=== PATIENT | female | born 1970 | race Caucasian/White ===

== ENCOUNTER 2019-01-29 12:00 | Emergency (ER) | payer OTHER ==
[~2019-01-29] VITALS: Ht 180.3 cm; Wt 133.4 kg
[~2019-01-29 12:00] MED LIST: COREG3.125 MG PO; NORVASC2.5 MG PO; PROAIR HFA8.5 GM INH
[2019-01-29] MEDS ORDERED: HYDROCHLOROTH12.5 M1 PO (12:29)
[2019-01-29] MEDS ORDERED: CARVEDILOL3.125 MG PO (12:29)
[2019-01-29] MEDS ORDERED: CYMBALTA20 MG PO (12:30)
[2019-01-29 13:45] LABS: ABSOLUTE EOSINOPHILS 0.2 thou/uL (0.0-0.7); ABSOLUTE LYMPHOCYTES 1.2 thou/uL (0.8-5.3); ABSOLUTE MONOCYTES 0.5 thou/uL (0.0-1.2); ABSOLUTE NEUTROPHILS 4.3 thou/uL (1.6-8.1); BASOPHILS 0.8 %; HEMATOCRIT 43.8 % (37.0-47.0); HEMOGLOBIN 14.6 gm/dL (12.0-15.0); LYMPHOCYTES 19.7 %; MCH 28.8 pg (26.0-34.0); MCHC 33.4 g/dL (28.0-37.0); MCV 86.4 fL (80.0-100.0); MONOCYTES 7.9 %; MPV 8.8 fl. (7.2-11.1); NUCLEATED RBCS 0 /100WBC; PLATELET COUNT* 193 thou/uL (150-400); POLYS 68.6 %; RBC 5.07 mil/uL (4.20-5.00); RDW-CV 13.4 % (10.5-14.5); WBC 6.2 thou/uL (4.0-11.0)
[2019-01-29 13:48] LABS: ANION GAP 6 mmol/L (7-16); BUN 19 mg/dL (7-18); CALCIUM 8.6 mg/dL (8.5-10.1); CHLORIDE 105 mmol/L (98-107); CO2 32 mmol/L (21-32); CREATININE 0.7 mg/dL (0.6-1.3); GLUCOSE 90 mg/dL (70-99); POTASSIUM 3.9 mmol/L (3.5-5.1); SODIUM 143 mmol/L (136-145)
[2019-01-29 13:58] LABS: ALBUMIN 2.9 g/dL (3.4-5.0); ALKALINE PHOSPHATASE 95 U/L (46-116); SGOT 20 U/L (15-37); SGPT 22 U/L (30-65); TOTAL BILIRUBIN 0.2 mg/dL (<0.1-1.0); TOTAL PROTEIN 6.7 g/dL (6.4-8.2); TROPONIN-I LEVEL <0.06 ng/mL (<0.06)
[2019-01-29 14:04] LABS: INFLUENZA A ANTIGEN None Detected (None Detect); INFLUENZA B ANTIGEN None Detected (None Detect)
[2019-01-29] MEDS ORDERED: AMOXICILLIN 50500 M1 PO (14:34)
[2019-01-29] MEDS ORDERED: PHENERGAN 25 MG25 M1 PO (14:35)
[2019-01-29 15:13] VITALS: BP 133/77
--- NOTE | 2019-01-30 10:20 | EKG ---
[place] [address] ELECTROCARDIOGRAM REPORT Name: ALIZA PEREYRA Judi Room: [facility]#: [id number] Admission: 01/29/19 Attend Phys: Discharge: 01/29/19 Date of : 72 Report #: [id number] THIS REPORT FOR: //name// [place] ED Test Date: 2019-01-29 Test Time: 14:04:04 Pat Name: ALIZA PEREYRA Department: Room: Gender: F Adult Services Librarian: [facility] : 1970 Requested By: Alondra Garcia Order Number: [id number] MD: Johan Rice Measurements Intervals [place] Rate: 65 P: 69 [place]: 189 QRS: 4 QRSD: 108 T: 33 QT: 422 QTc: 439 Interpretive Statements Sinus rhythm Probable left atrial enlargement Compared to ECG 04/21/2016 09:05:17 No significant changes Electronically Signed On 01-30-2019 10:20:08 CDT by Johan Rice [email or web address] <ELECTRONICALLY SIGNED> By: Johan Rice MD, [facility] 01/30/19 1020 140 03 Johan Rice MD, [facility] /EPI
== END 2019-01-29 15:16 | disposition home or self-care (01) ==
LOC: M.ERS 12:00
PROVIDERS: Nurse Practitioner Family
DX: R59.1 Generalized enlarged lymph nodes (principal); R42 Dizziness and giddiness; I10 Essential (primary) hypertension; Z88.6 Allergy status to analgesic agent; Z88.1 Allergy status to other antibiotic agents; Z88.5 Allergy status to narcotic agent; Z88.8 Allergy status to other drugs, medicaments and biological substances

== ENCOUNTER → 2019-10-22 | Outpatient (CLI) | payer MEDICARE ==
[~2019-10-22] MED LIST changes: +AMOXICILLIN 50500 M1 PO; +CARVEDILOL3.125 MG PO; +CYMBALTA20 MG PO; +HYDROCHLOROTH12.5 M1 PO; +PHENERGAN 25 MG25 M1 PO
[2019-10-22 08:53] LABS: ABSOLUTE EOSINOPHILS 0.2 thou/uL (0.0-0.7); ABSOLUTE LYMPHOCYTES 1.3 thou/uL (0.8-5.3); ABSOLUTE MONOCYTES 0.4 thou/uL (0.0-1.2); BASOPHILS 0.6 %; EOSINOPHILS 2.7 %; HEMATOCRIT 50.4 % (37.0-47.0); HEMOGLOBIN 17.2 gm/dL (12.0-15.0); LYMPHOCYTES 22.8 %; MCH 29.6 pg (26.0-34.0); MCHC 34.1 g/dL (28.0-37.0); MCV 86.8 fL (80.0-100.0); MONOCYTES 6.6 %; MPV 7.8 fl. (7.2-11.1); NUCLEATED RBCS 0 /100WBC; PLATELET COUNT* 210 thou/uL (150-400); POLYS 67.3 %; RDW-CV 13.8 % (10.5-14.5); WBC 5.9 thou/uL (4.0-11.0)
[2019-10-22 09:18] LABS: ALBUMIN 3.6 g/dL (3.4-5.0); CALCIUM 8.8 mg/dL (8.5-10.1); CREATININE 0.7 mg/dL (0.6-1.3); POTASSIUM 4.2 mmol/L (3.5-5.1); TOTAL BILIRUBIN 0.4 mg/dL (<0.1-1.0); TOTAL PROTEIN 7.7 g/dL (6.4-8.2)
--- NOTE | 2019-10-22 09:19 | 2DMMODE ---
[place] [address] 2 D/M-MODE ECHOCARDIOGRAM Name: AILZA PEREYRA Room: [facility]#: [id number] Admission: 10/22/19 Attend Phys: Kingsley Stroud, Discharge: Date of : 72 Date of Service: 10/22/19 0918 Report #: [id number] THIS REPORT FOR: cc: BLAINE MALDONADO DO Physician not on staff Dillon Lucero MD [facility] ~ APPROVED REPORT Study performed: 10/22/2019 07:53:23 EXAM: Comprehensive 2D, Doppler, and color-flow Echocardiogram Patient Location: Out-Patient BSA: 2.51 HR: 77 bpm BP: 136/80 mmHg Other Information Study Quality: Good Indications Hypertension/HDD 2D Dimensions IVSd: 10.20 (7-11mm) LVOT Diam: 20.08 (18-24mm) LVDd: 44.68 mm PWd: 10.20 (7-11mm) Ascending Ao: 34.94 (22-36mm) LVDs: 31.92 (25-40mm) Aortic Root: 24.35 mm Volumes Left Atrial Volume (Systole) LA ESV Index: 12.70 mL/m2 Aortic Valve AoV Peak David.: 0.95 m/s AO Peak Gr.: 3.64 mmHg LVOT Max P.03 mmHg AO Mean Gr.: 2.20 mmHg LVOT Mean P.98 mmHg LVOT Max V: 1.00 m/s AO V2 VTI: 20.81 cm LVOT Mean V: 0.65 m/s TUSHAR (VTI): 3.32 cm2 LVOT V1 VTI: 21.84 cm Mitral Valve E/A Ratio: 0.92 [place] [address] 2 D/M-MODE ECHOCARDIOGRAM Name: ALIZA PEREYRA Room: [facility]#: [id number] Admission: 10/22/19 Attend Phys: Kingsley Stroud, Discharge: Date of : 72 Date of Service: 10/22/19 0918 Report #: [id number] MV Decel. Time: 244.49 ms MV E Max David.: 0.50 m/s MV PHT: 70.90 ms MVA (PHT): 3.10 cm2 TDI E/Lateral E': 3.33 E/Medial E': 4.55 Medial E' David.: 0.11 m/s Lateral E' David.: 0.15 m/s Pulmonary Valve PV Peak David.: 0.82 m/s PV Peak Gr.: 2.68 mmHg Left Ventricle The left ventricle is normal size. There is normal LV segmental wall motion. There is normal left ventricular wall thickness. Left ventricular systolic function is normal. The left ventricular ejection fraction is within the normal range. LVEF is 55-60%. The left ventricular diastolic function is normal. Right Ventricle The right ventricle is normal size. The right ventricular systolic function is normal. Atria The left atrium size is normal. The right atrium size is normal. Aortic Valve The aortic valve is normal in structure. No aortic regurgitation is present. There is no aortic valvular stenosis. Mitral Valve The mitral valve is normal in structure. There is trace mitral valve regurgitation noted. No evidence of mitral valve stenosis. Tricuspid Valve The tricuspid valve is normal in structure. There is trace tricuspid valve regurgitation noted. Pulmonic Valve The pulmonary valve is normal in structure. There is no pulmonic valvular regurgitation. Great Vessels The aortic root is normal in size. IVC [place] [address] 2 D/M-MODE ECHOCARDIOGRAM Name: ALIZA PEREYRA Room: [facility]#: [id number] Admission: 10/22/19 Attend Phys: Kingsley Stroud, Discharge: Date of : 72 Date of Service: 10/22/19 0918 Report #: [id number] collapses >50% with inspiration. Pericardium There is no pericardial effusion. <Conclusion> Left ventricular systolic function is normal. The left ventricular ejection fraction is within the normal range. <ELECTRONICALLY SIGNED> By: Dillon Lucero MD, FACC 10/22/19917 7 7 Dillon Lucero MD, FACC /INF
== END ==
LOC: M.CRD 07:45
PROVIDERS: Internal Medicine Cardiovascular Disease
DX: I10 Essential (primary) hypertension (principal); Z82.49 Family history of ischemic heart disease and other diseases of the circulatory system

== ENCOUNTER 2019-11-15 12:27 | Observation (INO) | payer MEDICARE ==
[~2019-11-15] VITALS: Ht 180.3 cm; Wt 142.4 kg
[~2019-11-15 12:27] MED LIST changes: +NORVASC 2.5 MG2.5 M1 PO; -NORVASC2.5 MG PO
[2019-11-15 12:40] VITALS: BP 151/98
[2019-11-15] MEDS ORDERED: TRIAMTERENE/HCT1 CA1 PO (12:45)
[2019-11-15 13:23] LABS: ABSOLUTE BASOPHILS 0.1 thou/uL (0.0-0.2); ABSOLUTE EOSINOPHILS 0.2 thou/uL (0.0-0.7); ABSOLUTE LYMPHOCYTES 1.4 thou/uL (0.8-5.3); ABSOLUTE MONOCYTES 0.6 thou/uL (0.0-1.2); ABSOLUTE NEUTROPHILS 5.5 thou/uL (1.6-8.1); BASOPHILS 0.8 %; EOSINOPHILS 2.3 %; HEMATOCRIT 43.3 % (37.0-47.0); HEMOGLOBIN 14.7 gm/dL (12.0-15.0); LYMPHOCYTES 18.2 %; MCH 29.1 pg (26.0-34.0); MCHC 33.9 g/dL (28.0-37.0); MCV 85.9 fL (80.0-100.0); MONOCYTES 7.4 %; MPV 7.9 fl. (7.2-11.1); NUCLEATED RBCS 0 /100WBC; PLATELET COUNT* 234 thou/uL (150-400); POLYS 71.3 %; RBC 5.05 mil/uL (4.20-5.00); RDW-CV 13.5 % (10.5-14.5); WBC 7.7 thou/uL (4.0-11.0)
[2019-11-15 13:32] LABS: CALCIUM 8.1 mg/dL (8.5-10.1); CREATININE 0.6 mg/dL (0.6-1.3); POTASSIUM 4.1 mmol/L (3.5-5.1)
[2019-11-15 13:43] LABS: ALBUMIN 2.9 g/dL (3.4-5.0); TOTAL BILIRUBIN 0.2 mg/dL (<0.1-1.0); TOTAL PROTEIN 6.7 g/dL (6.4-8.2)
--- NOTE | 2019-11-15 15:27 | EKG ---
[place] [address] ELECTROCARDIOGRAM REPORT Name: ALIZA PEREYRA Room: [facility]#: [id number] Admission: 11/15/19 Attend Phys: Discharge: Date of : 72 Date of Service: 11/15/19 1235 Report #: [id number] THIS REPORT FOR: //name// [facility] ED Test Date: 2019-11-15 Test Time: 12:35:11 Pat Name: ALIZA PEREYRA Department: Room: Gender: Business Reporter: KEISHA : 1970 Requested By: Alondra Garcia Order Number: [id number] MD: Dillon Lucero Measurements Intervals [place] Rate: 87 P: 64 [place]: 173 QRS: -14 QRSD: 111 T: 33 QT: 391 QTc: 471 Interpretive Statements Sinus rhythm Compared to ECG 01/29/2019 14:04:04 No significant changes Electronically Signed On 11-15-2019 15:26:15 CDT by Dillon Lucero [email or web address] <ELECTRONICALLY SIGNED> By: Dillon Lucero MD, [facility] 11/15/19 1526 1235 1235 Dillon Lucero MD, [facility] /EPI
--- NOTE | 2019-11-15 15:27 | EKG ---
[place] [address] ELECTROCARDIOGRAM REPORT Name: ALIZA PEREYRA Room: [facility]#: [id number] Admission: 11/15/19 Attend Phys: Discharge: Date of : 72 Date of Service: 11/15/19 1349 Report #: [id number] THIS REPORT FOR: //name// [facility] ED Test Date: 2019-11-15 Test Time: 13:49:01 Pat Name: ALIZA PEREYRA Department: Room: Gender: Plant Tech: KEISHA : 1970 Requested By: Alondra Garcia Order Number: [id number] MD: Dillon Lucero Measurements Intervals [place] Rate: 72 P: 63 [place]: 181 QRS: 4 QRSD: 104 T: 30 QT: 391 QTc: 428 Interpretive Statements Sinus rhythm Compared to ECG 01/29/2019 14:04:04 No significant changes Electronically Signed On 11-15-2019 15:26:23 CDT by Dillon Lucero [email or web address] <ELECTRONICALLY SIGNED> By: Dillon Lucero MD, [facility] 11/15/19 1526 1349 Dillon Lucero MD, [facility]AC /EPI
[2019-11-15 16:04] LABS: URINE BILIRUBIN NEGATIVE (Negative); URINE BLOOD NEGATIVE (Negative); URINE CLARITY CLEAR; URINE COLOR YELLOW; URINE GLUCOSE-RANDOM NEGATIVE (Negative); URINE KETONES NEGATIVE (Negative); URINE LEUKOCYTES-REFLEX NEGATIVE (Negative); URINE NITRITE-REFLEX NEGATIVE (Negative); URINE PROTEIN NEGATIVE (Negative); URINE SPECIFIC GRAVITY <= 1.005 (1.005-1.030); URINE UROBILINOGEN 0.2 E.U./dl (0.2-1.0)
[2019-11-15 16:15] LABS: AMP/METHAMP Negative (Negative); BARBITURATES Negative (Negative); BENZODIAZEPINES Negative (Negative); COCAINE Negative (Negative); METHADONE Negative (Negative); OPIATES Negative (Negative); PCP Negative (Negative); THC Negative (Negative)
[2019-11-15 16:45] VITALS: BP 151/96
[2019-11-15 16:50] VITALS: BP 139/89
--- NOTE | 2019-11-15 18:08 | NUR ---
PATIENT ARRIVED FROM ER THIS EVENING. PATIENT SETTLED TO ROOM. HISTORY, ASSESSMENT AND VITALS COMPLETED AND DOCUMENTED. PATIENT SEEN BY DR ALEX. PATIENT HAS CONTINUED COMPLAINTS OF CHEST PAIN, DR ALEX AWARE. PATIENT HAS GOOD APPETITE. PATIENT AWAER SHE WILL BE NPO AFTER MIDNIGHT FOR TESTING TOMORROW. PATIEN TDENIES ANY NEEDS AT THIS TIME. CALL LIGHT WITHIN REACH.
[2019-11-15 20:00] VITALS: BP 146/95
--- NOTE | 2019-11-15 20:00 | NUR ---
RECEIVED REPORT AND ASSUMED CARE OF PT, ASSESSMENT COMPLETED. RESTING IN BED WATCHING TV. TELEMETRY ON SHOWING SR. WILL CONT TO MONITOR AND ASSIST NEEDED.
--- NOTE | 2019-11-15 21:30 | NUR ---
C/O RT SIDED CHEST PAIN, DENIES NAUSEA OR DIAPHORESIS. O2 APPLIED, EKG OBTAINED AND NTG GIVEN. TELEMETRY CONT TO SHOW SR. STATES MUCH BETTER. DISCUSSED STRESS TEST IN AM.
[2019-11-16] VITALS: BP 126/77
--- NOTE | 2019-11-16 02:00 | NUR ---
C/O CHEST PAIN AGAIN, STATES HAVING HARD TIME WITH EXPIRATION. GI COCKTAIL GIVEN. ENCOURAGED PT TO TURN ONTO BACK WITH HOB ELEVATED. CONT TO SHOW SR. WILL CONT TO MONITOR.
[2019-11-16 03:50] VITALS: BP 131/92
[2019-11-16 04:27] LABS: ABSOLUTE EOSINOPHILS 0.2 thou/uL (0.0-0.7); ABSOLUTE LYMPHOCYTES 1.8 thou/uL (0.8-5.3); ABSOLUTE MONOCYTES 0.4 thou/uL (0.0-1.2); ABSOLUTE NEUTROPHILS 3.6 thou/uL (1.6-8.1); BASOPHILS 0.6 %; EOSINOPHILS 3.7 %; HEMATOCRIT 40.5 % (37.0-47.0); HEMOGLOBIN 13.8 gm/dL (12.0-15.0); LYMPHOCYTES 29.7 %; MCH 29.4 pg (26.0-34.0); MCHC 34.1 g/dL (28.0-37.0); MCV 86.2 fL (80.0-100.0); MONOCYTES 7.3 %; MPV 8.1 fl. (7.2-11.1); NUCLEATED RBCS 0 /100WBC; PLATELET COUNT* 215 thou/uL (150-400); POLYS 58.7 %; RDW-CV 13.6 % (10.5-14.5); WBC 6.1 thou/uL (4.0-11.0)
[2019-11-16 04:48] LABS: ALBUMIN 2.5 g/dL (3.4-5.0); CALCIUM 8.4 mg/dL (8.5-10.1); CREATININE 0.8 mg/dL (0.6-1.3); POTASSIUM 3.5 mmol/L (3.5-5.1); TOTAL BILIRUBIN 0.2 mg/dL (<0.1-1.0); TOTAL PROTEIN 6.2 g/dL (6.4-8.2)
--- NOTE | 2019-11-16 06:54 | NUR ---
PT HAD 2 EPISODES OF RT SIDED CHEST PAIN TONIGHT, BOTH NTG AND GI COCKTAIL EFFECTIVE. O2 ON AT 2L/NC. TELEMETRY CONT TO SHOW SR. NO CHANGE IN ASSESSMENT. NPO SINCE [place] FOR TEST TODAY. HS GOALS OF REST AND SAFETY ACHIEVED. HOURLY ROUNDING OBSERVED.
[2019-11-16 08:00] VITALS: BP 120/85
--- NOTE | 2019-11-16 09:29 | EKG ---
[place] [address] ELECTROCARDIOGRAM REPORT Name: ALIZA PEREYRA Room: [address] M.R.#: [id number] Admission: 11/15/19 Attend Phys: Daryl Castelan Discharge: Date of : 72 Date of Service: 11/15/192050 Report #: [id number] THIS REPORT FOR: //name// [facility] Test Date: 2019-11-15 Test Time: 20:51:30 Pat Name: ALIZA PEREYRA Department: Room: [address] Gender: F Laborer Demolition: YOGESH : 1970 Requested By: Kingsley Stroud Order Number: [id number] Janak MD: Dillon Lucero Measurements Intervals [place] Rate: 77 P: 66 [place]: 178 QRS: -8 QRSD: 107 T: 17 QT: 395 QTc: 448 Interpretive Statements Sinus rhythm Low voltage, precordial leads Compared to ECG 11/15/2019 13:49:01 Low QRS voltage now present Electronically Signed On 11-16-2019 9:28:17 CDT by Dillon Lucero [email or web address] <ELECTRONICALLY SIGNED> By: Dillon Lucero MD, [facility]AC 11/16/19927 50 50 Dillon Lucero MD, [facility] /EPI
--- NOTE | 2019-11-16 09:30 | EKG ---
[place] [address] ELECTROCARDIOGRAM REPORT Name: ALIZA PEREYRA Room: [address]#: [id number] Admission: 11/15/19 Attend Phys: Daryl Castelan Discharge: Date of : 72 Date of Service: 11/16/19 0749 Report #: [id number] THIS REPORT FOR: //name// [facility] Test Date: 2019-11-16 Test Time: 07:49:58 Pat Name: ALIZA PEREYRA Department: Room: [address] Gender: F Client Insights Consultant: : 1970 Requested By: Daryl Castelan Order Number: [id number] Janak MD: Dillon Lucero Measurements Intervals [place] Rate: 64 P: 54 [place]: 187 QRS: -12 QRSD: 106 T: 24 QT: 411 QTc: 424 Interpretive Statements Sinus rhythm Probable left ventricular hypertrophy Compared to ECG 11/15/2019 13:49:01 No significant changes Electronically Signed On 11-16-2019 9:29:24 CDT by Dillon Lucero [email or web address] <ELECTRONICALLY SIGNED> By: Dillon Lucero MD, [facility] 11/16/19 0929 0749 0749 Dillon Lucero MD, [facility] /EPI
[2019-11-16] MEDS ORDERED: HYDROCODON-ACE1 EAC7 PO (10:33)
[2019-11-16 11:38] VITALS: BP 119/81
--- NOTE | 2019-11-16 14:12 | NUR ---
ASSUMED PT CARE REPORT RECEIVED FROM NURSE. PT IS AOX4. ON 2 L NC. TRACING SINUS RYTHM ON SULFIDE HEAD OPERATOR. RIGHT A/C LINE PATENT. NPO STATUS FOR STRESS TEST THIS AM. PT BACK FROM STRESS TEST AND LUNCH GIVEN. TORADOL GIVEN FOR CHEST PAIN LEVEL 6. NO FURTHER COMPLAINT. DISCHARGE PENDING CARDIO APPROVAL. WILL FOLLOW UP WITH CARDIO DEPARTMENT REGARDING STRESS TEST RESULT AND DISCHARGE PLAN. CALL LIGHT WITHIN REACH. WILL CONTINUE TO MONITOR PT
[2019-11-16 14:58] VITALS: BP 119/81
[2019-11-16] MEDS ORDERED: IBUPROFEN 800800 M1 PO (15:02)
--- NOTE | 2019-11-16 15:11 | NUR ---
Pt lives at home with and children. Pt has RW. No known hx of HH or SNF. SW/CM to remain available to assist with safe dc planning if needs arise.
--- NOTE | 2019-11-16 15:21 | NUR ---
PER CARDIOLOGY PT IS OK TO BE DISCHARGE. HEART MONITOR RETRIEVED. IV LINE REMOVED. PT LEFT FLOOR AT 1521 ACCOMPANIED BY BRICKMASON APPRENTICE ON WHEELCHAIR. BELONGINGS BROUGHT ALONG.
[2019-11-16 15:26] VITALS: BP 119/81
== END 2019-11-16 15:21 | disposition home or self-care (01) ==
LOC: M.ERS 12:27 → M.2W 14:56 → M.TBA-ER 14:56 → M.2W 16:52
PROVIDERS: Nurse Practitioner Family; ADMIT Internal Medicine
DX: R07.89 Other chest pain (principal); I10 Essential (primary) hypertension; E86.0 Dehydration; E66.01 Morbid (severe) obesity due to excess calories

== ENCOUNTER 2020-01-08 09:45 | Emergency (ER) | payer MEDICARE ==
[~2020-01-08] VITALS: Ht 180.3 cm; Wt 142.4 kg
[~2020-01-08 09:45] MED LIST changes: +HYDROCODON-ACE1 EAC7 PO; +IBUPROFEN 800800 M1 PO; +TRIAMTERENE/HCT1 CA1 PO
[2020-01-08 10:10] LABS: ABSOLUTE EOSINOPHILS 0.1 thou/uL (0.0-0.7); ABSOLUTE LYMPHOCYTES 1.3 thou/uL (0.8-5.3); ABSOLUTE MONOCYTES 0.4 thou/uL (0.0-1.2); ABSOLUTE NEUTROPHILS 3.9 thou/uL (1.6-8.1); BASOPHILS 0.6 %; EOSINOPHILS 2.2 %; LYMPHOCYTES 22.6 %; MCH 29.3 pg (26.0-34.0); MCHC 34.2 g/dL (28.0-37.0); MCV 85.9 fL (80.0-100.0); MONOCYTES 6.8 %; MPV 8.1 fl. (7.2-11.1); NUCLEATED RBCS 0 /100WBC; PLATELET COUNT* 231 thou/uL (150-400); POLYS 67.8 %; RBC 5.13 mil/uL (4.20-5.00); RDW-CV 13.9 % (10.5-14.5); WBC 5.8 thou/uL (4.0-11.0)
[2020-01-08 10:20] LABS: CALCIUM 8.5 mg/dL (8.5-10.1); CREATININE 0.7 mg/dL (0.6-1.3); POTASSIUM 3.9 mmol/L (3.5-5.1)
[2020-01-08 10:22] LABS: APTT 27.8 Seconds (25.0-31.3); PROTIME 10.5 Seconds (9.20-11.50)
[2020-01-08 10:32] LABS: TOTAL BILIRUBIN 0.3 mg/dL (<0.1-1.0); TOTAL PROTEIN 7.2 g/dL (6.4-8.2)
[2020-01-08 12:49] VITALS: BP 127/82
--- NOTE | 2020-01-09 10:10 | EKG ---
[place] [address] ELECTROCARDIOGRAM REPORT Name: ALIZA PEREYRA Room: [facility]#: [id number] Admission: 01/08/20 Attend Phys: Discharge: 01/08/20 Date of : 72 Date of Service: 01/08/20 0947 Report #: [id number] THIS REPORT FOR: //name// [facility] ED Test Date: 2020-01-08 Test Time: 09:47:19 Pat Name: ALIZA PEREYRA Department: Room: Gender: Breakfast Manager: Anneliese : 1970 Requested By: Marc Penaloza Order Number: [id number] MD: Dillon Lucero Measurements Intervals [place] Rate: 77 P: 68 [place]: 173 QRS: 2 QRSD: 103 T: 22 QT: 381 QTc: 432 Interpretive Statements Sinus rhythm Consider right atrial enlargement Compared to ECG 11/16/2019 07:49:58 No significant changes Electronically Signed On 01-09-2020 10:08:46 CDT by Dillon Lucero [email or web address] <ELECTRONICALLY SIGNED> By: Dillon Lucero MD, [facility] 01/09/20 1008 0947 0947 Dillon Lucero MD, [facility] /EPI
== END 2020-01-08 12:50 | disposition home or self-care (01) ==
LOC: M.ERS 09:45
PROVIDERS: Family Medicine
DX: B34.9 Viral infection, unspecified (principal); R07.9 Chest pain, unspecified; R51 Headache; R53.1 Weakness; I10 Essential (primary) hypertension; Z90.49 Acquired absence of other specified parts of digestive tract; Z90.710 Acquired absence of both cervix and uterus; Z79.899 Other long term (current) drug therapy; Z88.6 Allergy status to analgesic agent; Z88.1 Allergy status to other antibiotic agents; Z91.040 Latex allergy status

== ENCOUNTER → 2020-02-26 | Outpatient (CLI) | payer MEDICARE ==
[2020-02-26 08:59] LABS: CHOLESTEROL 218 mg/dL (<200); HDL CHOLESTEROL 70 mg/dL (>40); LDL CHOLESTEROL 133 mg/dL (<100); TC:HDL 3.1 Ratio (Not establshd); TRIGLYCERIDE 78 mg/dL (<150); VLDL 16 mg/dL (<40)
[2020-02-26 09:01] LABS: SERUM ASSESSMENT Clear
== END ==
LOC: M.LAB 08:14
PROVIDERS: ATTEND Registered Nurse
DX: Z82.49 Family history of ischemic heart disease and other diseases of the circulatory system (principal)

== ENCOUNTER → 2020-03-28 | Outpatient (CLI) | payer MEDICARE ==
--- NOTE | 2020-04-15 08:00 | SLEEP ---
[address] [address] SLEEP STUDY REPORT Name: DEBBIEALIZA ELIZONDO Room: [facility]#: [id number] Admission: 03/28/20 Attend Phys: OMER Alexander Discharge: Date of : 72 Report #: [id number] THIS REPORT FOR: //name// CC: FAM unknown Callie Aleman Physician staff This study has been reviewed in its entirety by a board certified sleep specialist DATE OF SERVICE: 03/28/2020 SLEEP STUDY INDICATION FOR SLEEP STUDY: Excessive daytime sleepiness/morning somnolence. INTERPRETATION: Total duration of the study is 388 minutes. Out of which, she was asleep for 297 minutes. There is an overall sleep efficiency of 77%. Sleep onset occurred about half an hour after lying down in bed and REM onset was 187 minutes after sleep onset. N1 sleep duration was 3%, N2 duration was 66%, N3 duration was 20% and REM duration was 10%. Mean heart rate was 77. Periodic limb movement index is normal at 5.5. Arousal index was essentially normal at 10.3. We did record multiple sleep related respiratory events. These included 33 hypopneas. There were also 9 respiratory effort related arousals recorded. No apneas were recorded. The patient's overall apnea-hypopnea index was 6.7. Events did appear to be more common during REM sleep. REM apnea-hypopnea index was 48. Body position data indicates the patient was observed asleep in the supine position for 89 minutes. Rest of the time, the patient was in other positions. There is no significant positional variation recorded during the sleep study. Events are more common when the patient is on the left side. At this time, the patient is in REM sleep and therefore it appears to me that the frequency of sleep related respiratory events is higher because the patient is in REM sleep and not due to the position the patient is in. We also recorded multiple desaturations. Overall, the patient spent 3 minutes below an O2 saturation of 90%. IMPRESSION: Obstructive sleep apnea with an apnea-hypopnea index of 6.7. Events are more common in REM sleep. REM apnea-hypopnea index is higher at 48. RECOMMENDATIONS: 1. Recommend treating this patient with positive airway pressure therapy while asleep. Options include either use of a CPAP auto titrated device or a repeat sleep study for positive airway pressure titration. Clinical [place] [address] SLEEP STUDY REPORT Name: ALIZA PEREYRA Room: [facility]#: [id number] Admission: 03/28/20 Attend Phys: OMER Alexander Discharge: Date of : 72 Report #: [id number] 2. If clinically appropriate, then consider weight loss. 3. Recommend avoiding driving or other activities requiring vigilance if drowsy. This entire sleep study was reviewed by board certified sleep physician. <ELECTRONICALLY SIGNED> By: Sukhwinder Felix MD 04/15/20799 2009 MD seth Pradhan
== END ==
LOC: M.SLEEPLAB 19:30
PROVIDERS: ATTEND Registered Nurse
DX: G47.33 Obstructive sleep apnea (adult) (pediatric) (principal)

== ENCOUNTER → 2020-12-17 | Outpatient (CLI) | payer OTHER, MEDICAID ==
--- NOTE | 2020-12-17 17:21 | CARDNUC ---
[place] [address] CARDIAC NUCLEAR IMAGING REPORT Name: ALIZA PEREYRA Room: [facility]#: [id number] Admission: 12/17/20 Attend Phys: Kingsley Stroud, Discharge: Date of : 72 Date of Service: 12/17/20 1720 Report #: [id number] THIS REPORT FOR: cc: BLAINE MALDONADO DO Physician not on staff Kingsley Stroud MD [facility] ~ APPROVED REPORT Study performed: 12/17/2020 10:25:06 Exam: Nuclear Stress Test Indication: Chest pain, Dyspnea Patient Location: Out-Patient Stress Tech: Letitia Mcqueen Stress Nurse: Quiana Hart RN Ht: 5 ft 11 in Wt: 359 lbs BSA: 2.70 m2 BMI: 50.06 Medical History Medical History: HTN, Hyperlipidemia Medications: amlodipine, metoprolol er, maxize Allergies: multiple Cardiac Risk Factors: HTN, Hyperlipidemia, FHX of CAD, Past Smoker Exercise History: Indeterminate Meds Held (24 hrs): metoprolol Stress Test Details Stress Test: Pharmacologic stress testing performed using 0.4 mg of regadenoson per 5 mL given IV over 10 seconds. HR Resting HR: 101 bpm Max Heart Rate (APMHR): 171 bpm Max HR Achieved: 126 bpm Target HR (85% APMHR): 145 bpm % of APMHR: 73 Recovery HR: 113 bpm BP Resting BP: 137/93 mmHg Max BP: 144/[place] [address] CARDIAC NUCLEAR IMAGING REPORT Name: ALIZA PEREYRA Room: [facility]#: [id number] Admission: 12/17/20 Attend Phys: Kingsley tSroud, Discharge: Date of : 72 Date of Service: 12/17/20 1720 Report #: [id number] Resting ECG: Sinus tachycardia Stress ECG: Sinus tachycardia ST Change: None Arrhythmia: VPC's Recovery ECG: Sinus tachycardia Recovery ST Change: None Recovery Arrhythmia: VPC's Clinical Reason for Termination: Completed protocol Patient tolerated Lexiscan infusion without significant cardiac symptoms. Nurse Comments pt has back problems and has trouble walking Stress ECG Conclusion The baseline twelve-lead EKG shows sinus tachycardia without significant ST segment or T wave abnormality. EKGs obtained during and post Lexiscan infusion show sinus tachycardia with no significant ST segment or T wave changes when compared to baseline. NM EXAM: Myocardial Perfusion REST/STRESS Imaging Protocol: Rest Tc-99m/Stress Tc-99m 1 day Resting Data Rest SPECT myocardial perfusion imaging was performed in supine position 30 minutes following the intravenous injection of 10.7 mCi of Tc-99m Sestamibi. Time of rest injection: 09:15 The images were gated to evaluate regional wall motion and calculate left ventricular ejection fraction. Administration Route: IV Administration Site: Left AC Pharmacologic Stress Pharmacologic stress test was performed by injecting Regadenoson 0.4 mg IV push followed by the intravenous injection of 29.6 mCi of Tc-99m Sestamibi. Time of stress injection: 10:50 Administration Route: IV Administration Site: Left AC Heart Rate at time of stress injection: 126 bpm. Gated Stress SPECT was performed 40 minutes after stress injection. The images were gated to evaluate regional [place] [address] CARDIAC NUCLEAR IMAGING REPORT Name: ALIZA PEREYRA Room: [facility]#: [id number] Admission: 12/17/20 Attend Phys: Kingsley Stroud, Discharge: Date of : 72 Date of Service: 12/17/20 1720 Report #: [id number] left ventricular ejection fraction. Study Quality Study: Fair Artifact: Moderate Breast artifact Study Data At rest, the left ventricular ejection fraction was 65%.. Post stress, the left ventricular ejection was 90%.. TID = 0.80. Perfusion Perfusion images obtained in the supine position at rest and post Lexiscan stress show moderate photopenia of the anterior wall appears more pronounced on resting and stress images. There is also moderate photopenia in the inferior wall. None of these defects appear reversible. Anterior wall defect is likely breast attenuation artifact. Inferior wall defect is likely diaphragmatic attenuation artifact. No reversible defects were identified. Wall Motion Normal left ventricular wall motion. Nuclear Conclusion ECG Findings: negative for ischemia Clinical Findings: negative for ischemia Nuclear Findings: negative for ischemia Exercise Capacity: not assessed Left Ventricular Function: normal Risk Study: low Perfusion images show some photopenia as outlined above consistent with breast attenuation and diaphragmatic attenuation artifact. No reversible defects are identified. Global LV systolic function appears normal on gated studies. This appears to be a low risk study. <Conclusion> The baseline twelve-lead EKG shows sinus tachycardia without significant ST segment or T wave abnormality. EKGs obtained during and post Lexiscan infusion show sinus tachycardia with no significant ST segment or T wave changes when compared to baseline. <ELECTRONICALLY SIGNED> By: Kingsley Stroud MD, FACC 12/17/201719 19 19 Kingsley Stroud MD, FACC /INF
== END ==
LOC: M.NUC 12-04 10:38
PROVIDERS: ATTEND Internal Medicine Cardiovascular Disease
DX: R06.00 Dyspnea, unspecified (principal); R07.9 Chest pain, unspecified; I10 Essential (primary) hypertension; Z82.49 Family history of ischemic heart disease and other diseases of the circulatory system

== ENCOUNTER 2021-05-01 17:55 | Emergency (ER) | payer OTHER, MEDICAID ==
[~2021-05-01] VITALS: Ht 177.8 cm; Wt 173.7 kg
[2021-05-01] MEDS ORDERED: CLONIDINE HCL0.1 M1 PO (18:19)
[2021-05-01] MEDS ORDERED: ROSUVASTATIN CA20 MG PO (18:20)
[2021-05-01] MEDS ORDERED: METFORMIN HCL500 M3 PO (18:20)
[2021-05-01] MEDS ORDERED: NIFEDIPINE ER30 M1 PO (18:21)
[2021-05-01] MEDS ORDERED: TOPROL XL100 MG PO (18:22)
[2021-05-01 19:09] LABS: POTASSIUM 3.7 mmol/L (3.5-5.1)
[2021-05-01 19:14] LABS: ALBUMIN 3.1 g/dL (3.4-5.0); TOTAL BILIRUBIN 0.4 mg/dL (<0.1-1.0); TOTAL PROTEIN 7.3 g/dL (6.4-8.2)
[2021-05-01 20:19] VITALS: BP 140/85
== END 2021-05-01 20:20 | disposition home or self-care (01) ==
LOC: M.ERS 17:55
PROVIDERS: Emergency Medicine
DX: I89.0 Lymphedema, not elsewhere classified (principal); I10 Essential (primary) hypertension; Z90.89 Acquired absence of other organs; Z90.49 Acquired absence of other specified parts of digestive tract; Z90.710 Acquired absence of both cervix and uterus; Z98.890 Other specified postprocedural states; Z88.6 Allergy status to analgesic agent; Z88.1 Allergy status to other antibiotic agents; Z88.5 Allergy status to narcotic agent; Z91.040 Latex allergy status

== ENCOUNTER → 2021-05-15 | Outpatient (CLI) | payer OTHER, MEDICAID ==
[~2021-05-15] MED LIST changes: +CLONIDINE HCL0.1 M1 PO; +METFORMIN HCL500 M3 PO; +NIFEDIPINE ER30 M1 PO; +ROSUVASTATIN CA20 MG PO; +TOPROL XL100 MG PO
== END ==
LOC: M.ULTRA 09:24
PROVIDERS: ATTEND Internal Medicine Cardiovascular Disease
DX: I10 Essential (primary) hypertension (principal)

== ENCOUNTER → 2021-07-13 | Outpatient (CLI) | payer OTHER, MEDICAID | LOC: M.RAD 14:32 | PROVIDERS: ATTEND Internal Medicine Critical Care Medicine | DX: R06.02 Shortness of breath (principal); M47.814 Spondylosis without myelopathy or radiculopathy, thoracic region; M41.84 Other forms of scoliosis, thoracic region ==